=== PATIENT | female | born 1970 | race Caucasian/White ===

== ENCOUNTER 2021-11-08 20:11 | Emergency (ER) | payer MEDICAID ==
[2021-11-08 21:05] VITALS: BP 109/74; PULSE 96
[2021-11-08 21:49] LABS: CORONAVIRUS COVID-19 NAA NEGATIVE (NEGATIVE)
[2021-11-08] MEDS ORDERED: Albuterol/Ipratropium 3.0-0.5 MG/3 ML Neb Soln NEB ONE (22:06)
[2021-11-08] MEDS ORDERED: Codeine/guaiFENesin 10-100 MG/5 ML Syrup 5 ML Cup PO ONE (23:00)
[2021-11-08] MEDS ORDERED: Acetaminophen 325 MG Tab PO ONE (23:07)
== END 2021-11-08 23:46 | disposition home or self-care (01) ==
LOC: JP.ED 20:11
DX: J40 Bronchitis, not specified as acute or chronic (principal); E78.00 Pure hypercholesterolemia, unspecified; K21.9 Gastro-esophageal reflux disease without esophagitis; Z88.2 Allergy status to sulfonamides; Z72.0 Tobacco use; Z20.822 Contact with and (suspected) exposure to COVID-19
CPT/HCPCS: 0241U; 36415; 71046; 80053; 83605; 84145; 85025; 94640; 99284; 99284-25; A9270-GY; J7620

== ENCOUNTER 2022-06-02 20:00 | Emergency (ER) | payer MEDICAID ==
[2022-06-02] MEDS ORDERED: Glucagon,Human Recombinant 1 MG Vial ONE (20:07)
[2022-06-02] MEDS ORDERED: Nitroglycerin 0.4 MG Tab.SL ONE (20:07)
== END 2022-06-02 21:00 | disposition home or self-care (01) ==
LOC: JP.ED 20:00
DX: T18.108A Unspecified foreign body in esophagus causing other injury, initial encounter (principal); Z88.2 Allergy status to sulfonamides
CPT/HCPCS: 93005; 96374; 99284; A9270; J1610

== ENCOUNTER 2023-09-25 11:45 | Emergency (ER) | payer MEDICAID ==
[2023-09-25 12:34] LABS: BASOPHILS ABSOLUTE AUTO 0.05 K/uL (0.00-0.10); BASOPHILS PERCENT AUTO 0.7 % (0.1-1.3); EOSINOPHILS ABSOLUTE AUTO 0.34 K/uL (0.00-0.40); EOSINOPHILS PERCENT AUTO 4.6 % (0.0-5.4); HEMATOCRIT 35.5 % (34.3-46.0); HEMOGLOBIN 12.5 g/dL (11.2-15.5); IMMATURE GRAN PERCENT AUTO 0.1 % (0.0-0.7); LYMPHOCYTES ABSOLUTE AUTO 2.43 K/uL (0.8-3.3); LYMPHOCYTES PERCENT AUTO 32.6 % (11.4-47.7); MEAN CORPUSCULAR HEMOGLOBIN 30.5 pg (31.6-35.5); MEAN CORPUSCULAR HGB CONC 35.2 g/dL (31.6-35.5); MEAN CORPUSCULAR VOLUME 86.6 fL (81.4-99.0); MONOCYTES ABSOLUTE AUTO 0.46 K/uL (0.20-0.90); MONOCYTES PERCENT AUTO 6.2 % (3.3-12.6); NEUTROPHILS ABSOLUTE AUTO 4.17 K/uL (1.0-7.6); NEUTROPHILS PERCENT AUTO 55.8 % (40.0-78.1); PLATELET COUNT,PLT 214 K/uL (130-375); WHITE BLOOD CELL COUNT,WBC 7.5 K/uL (3.2-11.0)
[2023-09-25 12:37] LABS: BASE EXCESS ARTERIAL -0.1 mm/L; BICARBONATE,ARTERIAL 22.2 mmol/L (22.0-26.0); CARBOXYHEMOGLOBIN 6.1 % (0.0-1.6); METHEMOGLOBIN 0.8 %; O2 SATURATION ARTERIAL 99.1 % (95.0-98.0); OXYHEMOGLOBIN 92.3 %; PCO2 ARTERIAL 30.1 mmHg (35.0-42.0); TOTAL HEMOGLOBIN 13.2 g/dL (12.0-16.0)
[2023-09-25 12:38] LABS: IMMATURE GRAN ABSOLUTE AUTO 0.01 K/uL (0.00-0.23)
[2023-09-25 12:52] LABS: CALCIUM 8.5 mg/dL (8.5-10.1); CREATININE 0.6 mg/dL (0.6-1.0); EST CRCL DRUG DOSING (CG) 92.1 mL/min; POTASSIUM,K 3.6 mmol/L (3.6-5.2)
[2023-09-25 12:56] LABS: ANION GAP 14.6 mmol/L (5.0-14.0)
[2023-09-25] MEDS ORDERED: Acetaminophen 500 MG Tab PO ONE (13:48)
[2023-09-25 14:25] VITALS: BP 109/70; PULSE 77
== END 2023-09-25 15:05 | disposition home or self-care (01) ==
LOC: JP.ED 11:45
DX: T58.91XA Toxic effect of carbon monoxide from unspecified source, accidental (unintentional), initial encounter (principal); Z88.2 Allergy status to sulfonamides
CPT/HCPCS: 36415; 36600; 70450; 80048; 82803; 83605; 85025; 93005; 99284; A9270

== ENCOUNTER 2023-12-09 04:20 | Emergency (ER) | payer SELFPAY ==
[2023-12-09 04:55] LABS: BASOPHILS ABSOLUTE AUTO 0.03 K/uL (0.00-0.10); BASOPHILS PERCENT AUTO 0.3 % (0.1-1.3); EOSINOPHILS ABSOLUTE AUTO 0.16 K/uL (0.00-0.40); EOSINOPHILS PERCENT AUTO 1.8 % (0.0-5.4); HEMOGLOBIN 12.1 g/dL (11.2-15.5); IMMATURE GRAN PERCENT AUTO 0.2 % (0.0-0.7); LYMPHOCYTES ABSOLUTE AUTO 1.56 K/uL (0.8-3.3); LYMPHOCYTES PERCENT AUTO 17.2 % (11.4-47.7); MEAN CORPUSCULAR HEMOGLOBIN 30.9 pg (31.6-35.5); MEAN CORPUSCULAR HGB CONC 34.6 g/dL (31.6-35.5); MEAN CORPUSCULAR VOLUME 89.3 fL (81.4-99.0); MONOCYTES ABSOLUTE AUTO 0.66 K/uL (0.20-0.90); MONOCYTES PERCENT AUTO 7.3 % (3.3-12.6); NEUTROPHILS ABSOLUTE AUTO 6.66 K/uL (1.0-7.6); NEUTROPHILS PERCENT AUTO 73.2 % (40.0-78.1); PLATELET COUNT,PLT 197 K/uL (130-375); RED BLOOD CELL COUNT 3.92 M/uL (3.77-5.24); WHITE BLOOD CELL COUNT,WBC 9.1 K/uL (3.2-11.0)
[2023-12-09 05:00] LABS: CREATININE 0.8 mg/dL (0.6-1.0); EST CRCL DRUG DOSING (CG) 69.08 mL/min; ESTIMATED GFR 88 mL/min (>60)
[2023-12-09 05:01] LABS: IMMATURE GRAN ABSOLUTE AUTO 0.02 K/uL (0.00-0.23)
[2023-12-09 05:18] LABS: A/G RATIO 0.9 (1.2-2.2); ALANINE AMINOTRANSFERASE,ALT 12 U/L (12-78); ALBUMIN 2.9 g/dL (3.4-5.0); ALKALINE PHOSPHATASE 90 U/L (46-116); ASPARTATE AMNIOTRANSFERASE,AST 15 U/L (15-37); BILIRUBIN TOTAL 0.3 mg/dL (0.2-1.0); BLOOD UREA NITROGEN,BUN 16 mg/dL (7-18); CALCIUM 8.5 mg/dL (8.5-10.1); CARBON DIOXIDE,CO2 25 mmol/L (21-32); CHLORIDE,CL 106 mmol/L (100-108); GLUCOSE RANDOM 109 mg/dL (74-106); PROTEIN TOTAL,TP 6.3 g/dL (6.4-8.2); SODIUM,NA 139 mmol/L (140-148)
[2023-12-09] MEDS: Ketorolac 30 MG/ML SDV IVPUSH ONE (05:21)
[2023-12-09] MEDS: Tamsulosin 0.4 MG Cap.ER PO ONE (05:32)
[2023-12-09 08:38] VITALS: BP 128/71; PULSE 74
== END 2023-12-09 08:58 | disposition home or self-care (01) ==
LOC: JP.ED 04:20
DX: N13.2 Hydronephrosis with renal and ureteral calculous obstruction (principal); E78.00 Pure hypercholesterolemia, unspecified; F17.210 Nicotine dependence, cigarettes, uncomplicated; Z88.2 Allergy status to sulfonamides; Z79.899 Other long term (current) drug therapy; Z86.19 Personal history of other infectious and parasitic diseases
CPT/HCPCS: 36415; 74176; 80053; 83690; 85025; 96374; 99285; A9270; J1885; 99284